=== PATIENT | male | born 1950 | race American Indian/Alaskan Native ===

== ENCOUNTER 2017-11-01 07:27 | Day surgery (SDC) | payer MEDICARE ==
[~2017-11-01 07:27] MED LIST: ANCEF/STERILE WATER 2 GM/20 ML 2 GM/20 ML SYRINGE IV NR; NACL 0.9% 1000 ML 1,000 ML IV SCH
[2017-11-01 09:04] LABS: Calcium 9.2 mg/dL (8.4-10.2)
[2017-11-01 09:05] LABS: Hematocrit 33.7 % (35.5-45.6); Hemoglobin 11.4 gm/dl (11.8-15.2); Mean Corpuscular HGB Conc 34 % (32-34); Mean Corpuscular Hemoglobin 28 pg (28-32); Mean Corpuscular Volume 84 fl (84-94); Platelet Count 171 K/mm3 (140-440); Red Blood Count 4.03 M/mm3 (3.65-5.03); Red Cell Distribution Width 15.7 % (13.2-15.2)
[2017-11-01 09:06] LABS: Basophils # (Auto) 0.1 K/mm3 (0.0-0.1); Basophils % (Auto) 0.7 % (0.0-1.8); Eosinophils # (Auto) 0.3 K/mm3 (0.0-0.4); Lymphocytes # (Auto) 1.6 K/mm3 (1.2-5.4); Lymphocytes % (Auto) 15.7 % (13.4-35.0); Monocytes # (Auto) 0.8 K/mm3 (0.0-0.8); Monocytes % (Auto) 7.5 % (0.0-7.3)
[2017-11-01] MEDS ORDERED: NACL 0.9% 250ML 250 ML ONE (12:40)
[2017-11-01] MEDS ORDERED: XYLOCAINE 2% INFILTRATI ONE (13:02)
[2017-11-01] MEDS ORDERED: SUBLIMAZE ONE (13:02)
[2017-11-01] MEDS ORDERED: HEPARIN/NS 5000 UNIT/500ML(CATH LAB) 1,000 ML IR ONE (13:02)
[2017-11-01] MEDS ORDERED: VERSED ONE (13:02)
[2017-11-01] MEDS ORDERED: HEPARIN 10,000 UNITS/10 ML ONE (13:02)
--- NOTE | 2017-11-01 13:26 | Short Stay Summary ---
Short Stay Documentation Date of service: 11/01/17 - History Principal diagnosis: ESRD on HD H&P: obtained from office - Allergies and Medications Current Medications: Allergies codeine Adverse Reaction (Verified 11/01/17 08:39) Nausea Home Medications Medication Instructions Recorded Confirmed Last Taken Type Aspirin [Aspir-Low] 81 mg PO DAILY 11/01/17 11/01/17 10/31/17 History 81mg Calcitriol [Rocaltrol] 0.2 mcg PO DAILY 11/01/17 11/01/17 10/31/17 History 0.2mcg Carvedilol [Coreg] 25 mg PO BID 11/01/17 11/01/17 10/31/17 History 25mg Clopidogrel Bisulfate [Plavix] 75 mg PO DAILY 11/01/17 11/01/17 10/31/17 History 75mg Ergocalciferol [Vitamin D2] 1 cap PO 1XW 11/01/17 11/01/17 10/29/17 History 1 Felodipine [Felodipine ER] 10 mg PO DAILY 11/01/17 11/01/17 10/31/17 History 10mg Furosemide [Lasix] 80 mg PO BID 11/01/17 11/01/17 10/31/17 History 80mg Insulin Aspart [NovoLOG Flexpen] 21 units SC AC 11/01/17 11/01/17 10/31/17 History 21 units Insulin Glargine,Hum.rec.anlog 50 units SC DAILY 11/01/17 11/01/17 10/31/17 History [Lantus] 50 units Losartan [Cozaar] 100 mg PO DAILY 11/01/17 11/01/17 10/31/17 History 100mg hydrALAZINE [Apresoline TAB] 100 mg PO BID 11/01/17 11/01/17 10/31/17 History 100mg Active Medications Cefazolin Sodium (Ancef/Sterile Water 2 Gm/20 Ml) 2 gm in 20 mls @ 80 mls/hr IV PREOP NR; Protocol Stop: 11/01/17 23:59 Sodium Chloride (Nacl 0.9% 1000 Ml) 1,000 mls @ 42 mls/hr IV DIRECT MADY - Brief post op/procedure progress note Date of procedure: 11/01/17 Pre-op diagnosis: Dialysis access malfunction Post-op diagnosis: same Procedure: fistulagram with venoplasty Anesthesia: local Surgeon: KARUNA AQUINO Estimated blood loss: minimal Pathology: none Condition: stable - Disposition Condition at discharge: Good Disposition: [id number] TO HOME OR SELFCARE Short Stay Discharge Plan Activity: advance as tolerated Weight Bearing Status: Weight Bear as Tolerated Diet: renal Wound: keep clean and dry, per your surgeon's advice Follow up with: FAHEEM JALLOH MD [Primary Care Provider] - 7 Days
--- NOTE | 2017-11-01 13:29 | Operative Report ---
Operative Report Operative Report: Exam: Left upper extremity fistulogram, venoplasty Clinical indication: Patient with a history of dialysis access malfunctioning and decreased flow Date: 11/01/2017 Procedure: Following an explanation of the risks, benefits and alternatives; written informed consent was obtained. The patient was brought to the angiographic suite and placed in supine position on the examination table. Initial evaluation of his left Graciela fistula demonstrated a palpable thrill. The patient's left lower arm was prepped and draped in the usual sterile fashion. 1% lidocaine was used for anesthesia. Using ultrasound guidance, the fistula was cannulated towards the venous outflow using a 7 cm 21-gauge needle. A 0.018 guidewire was advanced centrally. The needle was removed and a micro-sheath placed. The 0.018 guidewire was exchanged for a 0.035 guidewire and the micro-sheath exchanged for a 6 Faroese vascular sheath. Angiography was performed to the sheath in the body of the fistula and upper arm. Angiography was performed in the central veins using a 4 Faroese vertebral catheter placed in the left subclavian vein over a guidewire. 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 The remaining fistula in the forearm is widely patent. Venous drainage in the upper arm bifurcates into the superficial and deep venous systems with brisk flow throughout. Venoplasty of the stenosis was performed using a 10 mm x 40 mm balloon insufflated to 6 grover for 30 seconds. Post venoplasty imaging demonstrated reduction of the stenosis to less than 20%. The catheters, guidewires and sheath was removed and hemostasis achieved using 4 -0 Vicryl suture and manual compression. A sterile dressing was then applied. The patient tolerated the procedure well. There were no immediate post procedure complications. Conscious sedation was performed under the guidance of radiologic nursing. Continuous cardiopulmonary monitoring was utilized. 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 2) Venoplasty with residual less than 10% stenosis. 3) Would recommend accessing the fistula higher as opposed to through the pseudoaneurysm.
[2017-11-01 14:00] VITALS: BP 200/61
== END 2017-11-01 14:00 | disposition home or self-care (01) ==
LOC: CATHLABREC 07:27
PROVIDERS: ATTEND Radiology Diagnostic Radiology
DX: T82.858A Stenosis of other vascular prosthetic devices, implants and grafts, initial encounter (principal); E11.22 Type 2 diabetes mellitus with diabetic chronic kidney disease; I12.0 Hypertensive chronic kidney disease with stage 5 chronic kidney disease or end stage renal disease; N18.6 End stage renal disease; E11.51 Type 2 diabetes mellitus with diabetic peripheral angiopathy without gangrene; E11.42 Type 2 diabetes mellitus with diabetic polyneuropathy; E78.00 Pure hypercholesterolemia, unspecified; M06.9 Rheumatoid arthritis, unspecified; I25.2 Old myocardial infarction; Z79.82 Long term (current) use of aspirin; Z79.4 Long term (current) use of insulin; Z79.899 Other long term (current) drug therapy; Z88.5 Allergy status to narcotic agent; Z98.42 Cataract extraction status, left eye; Z98.41 Cataract extraction status, right eye; Z87.891 Personal history of nicotine dependence; Z98.890 Other specified postprocedural states; Y83.2 Surgical operation with anastomosis, bypass or graft as the cause of abnormal reaction of the patient, or of later complication, without mention of misadventure at the time of the procedure
CPT/HCPCS: 36415; 36901; 36907; 80048; 85025; C1725; C1751; C1769; C1894; J1644; J2250; J3010; J7050; 36902; Q9967